=== PATIENT | male | born 1970 | race Caucasian/White ===

== ENCOUNTER 2020-10-18 16:04 | Outpatient (REF) | payer BC, SELFPAY ==
[2020-10-19 10:09] LABS: SARS COV2 IgG Negative (Negative)
== END 2020-10-18 16:05 | disposition home or self-care (01) ==
LOC: HO.MANLDS 16:04
PROVIDERS: PCP Internal Medicine; Visit Provider Internal Medicine
DX: Z01.84 Encounter for antibody response examination (principal)
CPT/HCPCS: 36415; 86769

== ENCOUNTER 2020-12-15 08:47 | Outpatient (REF) | payer BC, SELFPAY ==
[2020-12-15 11:12] LABS: MANUAL DIFF FLAG NO
[2020-12-15 11:43] LABS: Basophils Percent Auto 0.6 % (0-2); Eosinophils Absolute Auto 0.2 X10*3/uL (0.0-0.4); Eosinophils Percent Auto 3.5 % (0-4); Hematocrit 47.9 % (42-52); Imm Gran Abs Auto 0.02 X10*3/uL (0.00-0.03); Imm Gran Pct Auto 0.3 % (0.0-0.4); Lymphocytes Absolute Auto 1.5 X10*3/uL (1.2-4.9); Lymphocytes Percent Auto 23.2 % (20-40); Mean Corpuscular HGB Conc 33.4 g/dl (31.0-36.0); Mean Corpuscular Hemoglobin 31.3 pg (27.0-33.0); Mean Corpuscular Volume 93.7 fL (80-98); Mean Platelet Volume 10.3 fL (9.4-12.4); Monocytes Absolute Auto 0.4 X10*3/uL (0.1-1.2); Monocytes Percent Auto 6.6 % (2-11); Neutrophils Absolute Auto 4.2 X10*3/uL (2.0-8.3); Neutrophils Percent Auto 65.8 % (45-73); Platelet Count 241 X10*3/uL (160-400); Red Blood Count 5.11 X10*6/uL (4.60-5.80); Red Cell Distribution Width 12.6 % (11.0-16.0); White Blood Count 6.3 X10*3/uL (4.8-10.8)
[2020-12-15 12:00] LABS: Alanine Aminotransferase 16 U/L (0-40); Albumin Level 4.2 g/dL (3.5-5.0); Alkaline Phosphatase 67 U/L (39-117); Anion Gap 14 (12-20); Aspartate Amino Transferase 16 U/L (5-37); Bilirubin Total 0.5 mg/dL (0.0-1.0); Blood Urea Nitrogen 21 mg/dL (9-16); Carbon Dioxide 26 mmol/L (22-29); Chloride 104 mmol/L (96-108); Cholesterol 172 mg/dL; Estimated Glomerular Filt Rate > 60; Glucose Fasting 90 mg/dL (60-99); HDL Cholesterol 55 mg/dL; LDL Cholesterol Calculated 109 mg/dl; Sodium 139 mmol/L (135-145); Total Protein 7.1 g/dL (6.5-8.0); Triglycerides 40 mg/dL
[2020-12-15 12:20] LABS: Prostate Specific Antigen 0.99 ng/mL (<0.05-4.0)
[2020-12-15 13:09] LABS: Glucose Urine UA NEG (NEG); Leukocyte Esterase Urine NEG (NEG); Nitrite Urine NEG (NEG); PH 5.5 (5.0-8.0); Specific Gravity - Urine >= 1.030 (1.005-1.025); Urine Blood NEG (NEG); Urine Ketones NEG (NEG); Urine Protein NEG (NEG-TRACE)
[2020-12-15 13:10] LABS: Appearance Urine CLEAR; Color Urine YELLOW
== END 2020-12-15 08:48 | disposition home or self-care (01) ==
LOC: HO.MANLDS 08:47
PROVIDERS: PCP Internal Medicine; Visit Provider Internal Medicine
DX: Z00.01 Encounter for general adult medical examination with abnormal findings (principal); Z12.5 Encounter for screening for malignant neoplasm of prostate
CPT/HCPCS: 36415; 80053; 80061; 81003; 84153; 85025

== ENCOUNTER 2022-08-09 11:44 | Outpatient (REF) | payer BC, SELFPAY ==
[2022-08-09 13:49] LABS: MANUAL DIFF FLAG NO
[2022-08-09 14:02] LABS: Basophils Absolute Auto 0.1 X10*3/uL (0.0-0.2); Basophils Percent Auto 0.7 % (0-2); Eosinophils Absolute Auto 0.3 X10*3/uL (0.0-0.4); Eosinophils Percent Auto 4.7 % (0-4); Hematocrit 48.2 % (42.0-52.0); Imm Gran Abs Auto 0.03 X10*3/uL (0.00-0.03); Imm Gran Pct Auto 0.4 % (0.0-0.4); Lymphocytes Absolute Auto 1.6 X10*3/uL (1.2-4.9); Lymphocytes Percent Auto 22.8 % (20-40); Mean Corpuscular HGB Conc 33.2 g/dl (31.0-36.0); Mean Corpuscular Hemoglobin 30.5 pg (27.0-33.0); Mean Corpuscular Volume 91.8 fL (80.0-98.0); Mean Platelet Volume 9.9 fL (9.4-12.4); Monocytes Absolute Auto 0.4 X10*3/uL (0.1-1.2); Monocytes Percent Auto 5.7 % (2-11); Neutrophils Absolute Auto 4.5 x10*3/uL (2.0-8.3); Neutrophils Percent Auto 65.7 % (45-73); Platelet Count 266 X10*3/uL (160-400); Red Blood Count 5.25 X10*6/uL (4.60-5.80); Red Cell Distribution Width 12.6 % (11.0-16.0); White Blood Count 6.8 X10*3/uL (4.8-10.8)
[2022-08-09 14:46] LABS: Alanine Aminotransferase 12 U/L (0-40); Albumin Level 4.2 g/dL (3.5-5.0); Alkaline Phosphatase 64 U/L (39-117); Anion Gap 14 (12-20); Aspartate Amino Transferase 18 U/L (5-37); Bilirubin Total 0.7 mg/dL (0.0-1.0); Blood Urea Nitrogen 19 mg/dL (9-16); Calcium 9.3 mg/dL (8.4-10.2); Carbon Dioxide 26 mmol/L (22-29); Chloride 104 mmol/L (96-108); Cholesterol 168 mg/dL; Estimated Glomerular Filt Rate > 60; Glucose Random 88 mg/dL (60-115); HDL Cholesterol 51 mg/dL; LDL Cholesterol Calculated 109 mg/dl; Potassium 4.7 mmol/L (3.3-5.1); Sodium 139 mmol/L (135-145); Triglycerides 41 mg/dL
[2022-08-09 15:09] LABS: Prostate Specific Antigen 0.96 ng/mL (<0.05-4.0); Thyroid Stimulating Hormone 1.17 uIU/mL (0.32-4.0); Vitamin D 25-OH Total 23.7 ng/mL (>30)
== END 2022-08-09 11:45 | disposition home or self-care (01) ==
LOC: HO.MANLDS 11:44
PROVIDERS: Visit Provider Internal Medicine
DX: Z00.00 Encounter for general adult medical examination without abnormal findings (principal); Z12.5 Encounter for screening for malignant neoplasm of prostate
CPT/HCPCS: 36415; 80053; 80061; 82306; 84153; 84443; 85025

== ENCOUNTER 2023-09-12 11:51 | Outpatient (REF) | payer BC, SELFPAY ==
[2023-09-12 14:41] LABS: Estimated Average Glucose 108 mg/dL; Hemoglobin A1c % 5.4 % (<6.0)
[2023-09-12 14:54] LABS: Alanine Aminotransferase 16 U/L (0-40); Alkaline Phosphatase 76 U/L (39-117); Anion Gap 13 (12-20); Aspartate Amino Transferase 19 U/L (5-37); Bilirubin Total 0.6 mg/dL (0.0-1.0); Blood Urea Nitrogen 20 mg/dL (9-16); Calcium 9.2 mg/dL (8.4-10.2); Carbon Dioxide 27 mmol/L (22-29); Chloride 107 mmol/L (96-108); Estimated Glomerular Filt Rate > 60; Glucose Random 104 mg/dL (60-115); Potassium 4.6 mmol/L (3.3-5.1); Sodium 142 mmol/L (135-145); Total Protein 7.4 g/dL (6.5-8.0)
== END 2023-09-12 11:52 | disposition home or self-care (01) ==
LOC: HO.MANLDS 11:51
PROVIDERS: Visit Provider Internal Medicine
DX: Z13.1 Encounter for screening for diabetes mellitus (principal); Z83.3 Family history of diabetes mellitus
CPT/HCPCS: 36415; 80053; 83036

== ENCOUNTER 2024-08-17 10:39 | Outpatient (REF) | payer BC, SELFPAY ==
[2024-08-17 13:28] LABS: MANUAL DIFF FLAG NO
[2024-08-17 13:41] LABS: Basophils Absolute Auto 0.1 X10*3/uL (0.0-0.2); Basophils Percent Auto 0.8 % (0-2); Eosinophils Absolute Auto 0.3 X10*3/uL (0.0-0.4); Eosinophils Percent Auto 4.6 % (0-4); Hematocrit 46.7 % (42.0-52.0); Hemoglobin 15.6 g/dl (14.0-18.0); Imm Gran Abs Auto 0.05 X10*3/uL (0.00-0.03); Imm Gran Pct Auto 0.8 % (0.0-0.4); Lymphocytes Absolute Auto 1.7 X10*3/uL (1.2-4.9); Lymphocytes Percent Auto 26.3 % (20-40); Mean Corpuscular HGB Conc 33.4 g/dl (31.0-36.0); Mean Corpuscular Hemoglobin 31.4 pg (27.0-33.0); Mean Platelet Volume 10.8 fL (9.4-12.4); Monocytes Absolute Auto 0.4 X10*3/uL (0.1-1.2); Monocytes Percent Auto 5.7 % (2-11); Neutrophils Percent Auto 61.8 % (45-73); Platelet Count 221 X10*3/uL (160-400); Red Blood Count 4.97 X10*6/uL (4.60-5.80); Red Cell Distribution Width 13.2 % (11.0-16.0); White Blood Count 6.5 X10*3/uL (4.8-10.8)
[2024-08-17 13:58] LABS: Estimated Average Glucose 103 mg/dL; Hemoglobin A1C 127.4219 umol/L; Hemoglobin A1c % 5.2 % (<6.0); Total Hemoglobin (HGBA1C) 3845.4248 umol/L
[2024-08-17 14:03] LABS: Alanine Aminotransferase 18 U/L (0-40); Albumin Level 4.1 g/dL (3.5-5.0); Alkaline Phosphatase 72 U/L (39-117); Anion Gap 12 (12-20); Aspartate Amino Transferase 26 U/L (5-37); Bilirubin Total 0.7 mg/dL (0.0-1.0); Blood Urea Nitrogen 16 mg/dL (9-16); Calcium 9.5 mg/dL (8.4-10.2); Carbon Dioxide 26 mmol/L (22-29); Chloride 105 mmol/L (96-108); Cholesterol 162 mg/dL (<200); Estimated Glomerular Filt Rate > 60; Glucose Random 91 mg/dL (60-115); HDL Cholesterol 57 mg/dL (>40); LDL Cholesterol Calculated 95 mg/dL (<100); Potassium 4.5 mmol/L (3.3-5.1); Sodium 138 mmol/L (135-145); Total Protein 7.1 g/dL (6.5-8.0); Triglycerides 52 mg/dL (<150)
[2024-08-17 14:22] LABS: Thyroid Stimulating Hormone 1.04 uIU/mL (0.32-4.0)
[2024-08-22 12:24] LABS: VITAMIN D (1,25 OH) D3 41 pg/mL; Vit D (1,25-Dihydroxy) Total 41 pg/mL (18-72); Vitamin D (1,25 OH) D2 <8 pg/mL
== END 2024-08-17 10:40 | disposition home or self-care (01) ==
LOC: HO.MANLDS 10:39
PROVIDERS: Visit Provider Internal Medicine
DX: Z00.01 Encounter for general adult medical examination with abnormal findings (principal); Z12.5 Encounter for screening for malignant neoplasm of prostate; Z13.1 Encounter for screening for diabetes mellitus; Z13.89 Encounter for screening for other disorder
CPT/HCPCS: 36415; 80053; 80061; 82652; 83036; 84153; 84443; 85025

== ENCOUNTER 2025-09-13 10:39 | Outpatient (REF) | payer BC, SELFPAY ==
--- OUTSIDE RECORDS SUMMARY | 2025-09-13 12:24 | XMS_ITS | Encounter Summary ---
Author Organization [facility] Address [address] [place] [id number] Phone Care Team Providers Care Geoscientist Name Role Phone Armando Rojas DO Primary Care Provider [phone] Armando Rojas DO Unavailable Encounter Details Date Type Department Care Team (Latest Contact Info) Description 08/17/2021 Transcribe Orders [facility] Phleb [facility] [address] [facility] 2nd [place] [address] Azalia Fox, POWER WASHER [address] [place] [address] [email or web address] Gastroesophageal reflux disease, unspecified whether esophagitis present (Primary Dx) Social History Tobacco Use Types Packs/Day Years Used Date Smoking Tobacco: Never Smokeless Tobacco: Never Alcohol Use Standard Drinks/Week Comments No 0 (1 standard drink = 0.6 oz pur e alcohol) Sex and Gender Information Value Date Recorded Sex Assigned at Not on file Legal Sex Male 7:25 PM EST Gender Identity Not on file Sexual Orientation Not on file documented as of this encounter Plan of Treatment Not on file documented as of this encounter Results * (ABNORMAL) C-Reactive Protein (08/17/2021 8:44 AM EDT) C REACTIVE PROTEIN 5.5(H) 0.0 - 4.0 mg/L [facility] Blood 08/17/2021 8:44 AM EDT 08/17/2021 8:50 AM EDT us Azalia Fox POWER WASHER LAB BLOOD BKR ORDERABLES F inal Result [address] [address] * (ABNORMAL) Comprehensive metabolic panel (08/17/2021 8:44 AM EDT) SODIUM 139 133 - 146 mmol/L [facility] POTASSIUM 4.8 3.3 - 5.1 mmol/L [facility] CHLORIDE 102 96 - 108 mmol/L [facility] CO2 28 21 - 35 mmol/L [facility] BUN 20(H) 6 - 19 mg/dL [facility] CREATININE 0.80 0.5 - 1.5 mg/dL [facility] GLUCOSE 93 70 - 99 mg/dL [facility] ALBUMIN 4.3 3.9 - 4.8 g/dL [facility] TOTAL PROTEIN 7.1 6.5 - 8.0 g/dL [facility] CALCIUM 9.1 8.4 - 10.3 mg/dL [facility] ALKALINE PHOSPHATASE 72 39 - 117 U/L [facility] TOTAL BILIRUBIN 0.6 0.0 - 1.2 mg/dL [facility] AST 24 0 - 37 U/L [facility] ALT 11 0 - 40 U/L [facility] GLOBULIN 2.8 1 - 4.8 g/dL [facility] EGFR 103 >59 mL/min/1.7 3m2 [facility] Comment:Estimated glomerular filtration rate calculated using the CKD-EPI equation. ANION GAP 14 10 - 20 mmol/L [facility] Blood 08/17/2021 8:44 AM EDT 08/17/2021 8:50 AM EDT Azalia Fox [facility] LAB BLOOD BKR ORDERABLES F inal Result [address] [address] * CBC and differential (08/17/2021 8:44 AM EDT) WBC 6.76 4.00 - 11.00 K/uL [facility] RBC 5.18 4.23 - 5.82 M/uL [facility] HGB 16.2 13.4 - 17.5 g/dL [facility] HCT 48.1 37.0 - 51.0 % [facility] PLT 229 140 - 430 K/uL [facility] MCV 92.9 78.0 - 97.0 fL [facility] MCH 31.3 25.0 - 33.0 pg [facility] MCHC 33.7 32.0 - 36.0 g/dL [facility] RDW 12.6 11.0 - 15.0 % [facility] MPV 10.4 8.4 - 12.8 fl [facility] NRBC 0.00 0 /100 WBCs [facility] ABSOLUTE NRBC 0.00 0 K/uL [facility] DIFF METHOD Auto [facility] NEUTS 63.8 43.0 - 75.0 % [facility] LYMPHS 22.5 18.2 - 47.4 % [facility] MONOS 6.7 4.00 - 11.00 % [facility] EOS 5.6 0.0 - 8.0 % [facility] BASOS 0.7 0.0 - 2.0 % [facility] Granulocytes, immature (%) 0.7 0.0 - 0.9 % [facility] ABSOLUTE NEUTS 4.31 1.80 - 7.70 K/uL [facility] ABSOLUTE LYMPHS 1.52 1.00 - 3.10 K/uL [facility] ABSOLUTE MONOS 0.45 0.20 - 0.80 K/uL [facility] ABSOLUTE EOS 0.38 0.00 - 0.80 K/uL [facility] ABSOLUTE BASOS 0.05 0.00 - 0.09 K/uL [facility] Granulocytes, immature 0.05 0.00 - 0.05 K/uL [facility] Blood 08/17/2021 8:44 AM EDT 08/17/2021 8:50 AM EDT us Azalia Fox POWER WASHER LAB BLOOD BKR ORDERABLES F inal Result Performing Organization Address [facility] [address]/ZIP Co de Phone Number [address] [address] * Immunoglobulin A (08/17/2021 8:44 AM EDT) IgA 332 70 - 400 mg/dL [facility] Blood 08/17/2021 8:44 AM EDT 08/17/2021 8:50 AM EDT Azalia Mayer Rdudy [facility] LAB BLOOD BKR ORDERABLES F inal Result Performing Organization Address [facility] [address]/[facility] Co de Phone Number [address] [address] * Tissue transglutaminase IgA (08/17/2021 8:44 AM EDT) TTG IGA ANTIBODY <1.2 <4.0 (Negative) U/mL [facility] Blood 08/17/2021 8:44 AM EDT 08/17/2021 8:50 AM EDT Azaliabriana Mayer Ruddy [facility] LAB BLOOD BKR ORDERABLES F inal Result Performing Organization Address [facility] [address]/[facility] Co de Phone Number [facility] [address] [place] [address] documented in this encounter Visit Diagnoses Diagnosis Gastroesophageal reflux disease, unspecified whether esophagitis present- Primary documented in this encounter Care Teams Geoscientist Relationship Specialty Start Date End Date Armando Rojas DO PCP - General 02/16/15 Armando Rojas DO [address] [place] [id number] Insurance Assigned Provider 01/17/24 documented as of this encounter Additional Source Comments The information contained in this document represents components of the legal health record. It is not the complete legal health record.[facility]
--- OUTSIDE RECORDS SUMMARY | 2025-09-13 12:24 | XMS_ITS | Encounter Summary ---
Author Organization [facility] Address [address] [place] [id number] Phone Care Team Providers Care Dry Wall Sprayer Name Role Phone Armando Rojas DO Primary Care Provider [phone] Armando Rojas DO Unavailable Encounter Details Date Type Department Care Team (Late st Contact Info) Description 04/07/2023 Procedure Pass Non-Invasive Cardiology [address] [place] [address] Social History Tobacco Use Types Packs/Day Years Used Date Smoking Tobacco: Never Smokeless Tobacco: Never Alcohol Use Standard Drinks/Week Comments No 0 (1 standard drink = 0.6 oz pur e alcohol) Education Answer Date Recorded Are you interested in more education? Not on ty e 02/06/2023 Are you concerned about learning? Not on file 02/06/2023 No 02/06/2023 No 02/06/2023 Digital Access Answer Date Recorded No 03/10/2023 No 03/10/2023 Reliable internet access at home? Not on file 03/10/2023 Device with a working camera? Not on file Sex and Gender Information Value Date Recorded Sex Assigned at Not on file Legal Sex Male 7:25 PM EST Gender Identity Not on file Sexual Orientation Not on file documented as of this encounter Plan of Treatment Not on file documented as of this encounter Visit Diagnoses Not on filedocumented in this encounter Care Teams Dry Wall Sprayer Relationship Specialty Start Date End Date Armando Rojas DO [email or web address] PCP - General 02/16/15 Armando Rojas DO [address] [place] [address] [email or web address] Insurance Assigned Provider 01/17/24 documented as of this encounter Additional Source Comments The information contained in this document represents components of the legal health record. It is not the complete legal health record.[facility]
--- OUTSIDE RECORDS SUMMARY | 2025-09-13 12:24 | XMS_ITS | Clinical Summary ---
Author Organization [facility] Address [address] [place] [phone] Phone Care Team Providers Care Circuit Court Judge Name Role Phone Armando Rojas DO Primary Care Provider [phone] Armando Rojas DO Unavailable Allergies Active Allergy Reactions Criticality Noted Date Comments Diltiazem Headaches 10/31/2023 Omeprazole Magnesium Rash Low 10/31/2023 Medications ibuprofen (ADVIL,MOTRIN) 800 MG tablet TAKE 1 TABLET BY MOUTH FOUR TIMES A DAY IF NEEDED WITH FOOD 0 10/30/2017 Active cetirizine (ZYRTEC) 10 MG tablet Take 10 mg by mouth as needed. seasonal Active coenzyme Q10 100 mg capsule Take 100 mg by mouth daily. Active cholecalciferol (VITAMIN D3) 4,000 unit tablet Take by mouth daily. Active lycopene/lutein /fruit extracts (FRUIT AND VEGETABLE DAILY ORAL) Take by mouth. Active green tea leaf extract (GREEN TEA) Cap Take by mouth. Active magnesium aspart,citrate, oxide 400 mg magnesium Cap Take 1 tablet by mouth daily. 10/03/2023 Active propranoloL (INDERAL LA) 60 mg 24 hr capsule Take 1 capsule (60 mg total) by mouth daily. 30 capsule 11 10/25/2024 Active terbinafine HCL (LAMISIL) 250 mg tablet Take 250 mg by mouth daily. 11/22/2024 Active Active Problems Problem Noted Date Diagnosed Date Other chest pain 02/24/2020 Right shoulder pain 10/30/2017 Gastroesophageal reflux disease 07/27/2012 Overview (12/03/2014): Gastroesophageal reflux disease SVT (supraventricular tachycardia) Immunizations Immunization Administration Dates Next Due COVID-19 (Pre-08/04) Moderna Vaccine, mRNA, PF 0 11/23/2020 Pneumococcal polysaccharide PPSV23 06/17/2012(De ferred: Other) Td, unspecified formulation 05/05/2008 Tdap 07/10/2019 Family History Medical History Relation Comments No Known Problems Brother Diabetes Father No Known Problems Maternal Aunt No Known Problems Maternal Grandfather No Known Problems Maternal Grandmother No Known Problems Maternal Uncle Breast cancer Mother Cancer Mother No Known Problems Paternal Aunt No Known Problems Paternal Grandfather No Known Problems Paternal Grandmother No Known Problems Paternal Uncle No Known Problems Sister No Known Problems Unspecified Clotting disorder Neg Hx Collagen disease Neg Hx Depression Neg Hx Dislocations Neg Hx Gout Neg Hx Infl. arthritis Neg Hx Osteoporosis Neg Hx Scoliosis Neg Hx Sleep disorder Neg Hx Relation Status Comments Brother Father Maternal Aunt Maternal Grandfather Maternal Grandmother Maternal Uncle Mother Paternal Aunt Paternal Grandfather Paternal Grandmother Paternal Uncle Sister Unspecified Social History Tobacco Use Types Packs/Day Years Used Date Smoking Tobacco: Never Smokeless Tobacco: Never Tobacco Cessation:Counseling Given: Not Answered Alcohol Use Standard Drinks/Week Comments No 0 [...] on file Sexual Orientation Not on file Last Filed Vital Signs Vital Sign Reading Time Taken Comments Blood Pressure 126/76 04/19/2025 2:42 PM EDT Pulse 78 04/19/2025 2:42 PM EDT Temperature 36.5 C (97.7 F) 04/19/2025 2:42 PM EDT Respiratory Rate 18 03/15/2013 9:01 AM EDT Oxygen Saturation 98% 04/19/2025 2:42 PM EDT Inhaled Oxygen Concentration - - Weight 101.2 kg (223 lb) 04/19/2025 2:42 PM EDT Height 166.4 cm (5' 5.51 ) 10/25/2024 1:40 PM ES T Body Mass Index 36.53 10/25/2024 1:40 PM EST Plan of Treatment Health Maintenance Due Date Last Done Comments DEPRESSION SCREENING 1982 HIV ONE-TIME SCREENING (18-6 5 YEARS) 01/06/1988 COLOGUARD 2015 FIT TEST 2015 FOBT 2015 SIGMOIDOSCOPY 2015 VIRTUAL COLONOSCOPY 2015 PNEUMOCOCCAL VACCINES (50+ years) (1 of 1 - PCV) 01/06/2020 ZOSTER VACCINES (1 of 2) 01/06/2020 SCREENING FOR DIABETES 08/17/2024 , 12/10/2019 INFLUENZA VACCINE (#1) 2025 08/08/2015 COVID-19 VACCINE (2 - 2024-2 6 season) 2025 11/23/2020 LIPID PANEL 08/09/2027 08/09/2022, 08/09/2022, 12/15/2020 COLONOSCOPY 07/23/2028 08/17/2021 COLORECTAL CANCER SCREENING 07/23/2028 Adult Td,Tdap Booster 07/10/2029 07/10/2019 , 05/05/2008 RSV VACCINE (1 - 1-dose 75+ series) 2045 HEPATITIS C SCREENING Completed 12/10/2019 , 03/29/1996 SMOKING STATUS SCREENING (On ce After 26 Yrs) Completed 04/19/2025 HEPATITIS A VACCINES Aged Out No long er eligible based on patient's age to complete this topic HIB VACCINES Aged Out No longer eligi ble based on patient's age to complete this topic IPV VACCINES Aged Out No longer eligi ble based on patient's age to complete this topic MENINGOCOCCAL VACCINES (ACWY) Aged Out No longer eligible based on patient's age to complete this topic MENINGOCOCCAL VACCINES (B) Aged Out N o longer eligible based on patient's age to complete this topic Medical Devices Not on file Procedures Procedure Name Priority Date/Time Associated Diagnosis Comments HM COLONOSCOPY FOR RESULT ENTRY ONLY Routine 08/17/2021 from Last 3 Months or Most Recently Relevant to Health Maintenance Results * COLONOSCOPY FOR RESULT ENTRY ONLY (08/17/2021) HM Colonoscopy External us Historical Provider MD HEALTH MAINTENANCE Final Result from Last 3 Months or Most Recently Relevant to Health Maintenance Insurance [facility] [employer] Care Teams Circuit Court Judge Relationship Specialty Start Date End Date Armando Rjoas DO PCP - General 02/16/15 Armando Rojas DO [address] [place] [address] Insurance Assigned Provider 01/17/24 Additional Source Comments The information contained in this document represents components of the legal health record. It is not the complete legal health record.[facility]
--- OUTSIDE RECORDS SUMMARY | 2025-09-13 12:24 | XMS_ITS | Continuity of Care Document ---
Author Organization [facility], [facility] Address [address] [facility] [address] [facility] [place] [address] Assessment Encounter Date Assessment Date Assessment LastModified by Organization Details LastModified Time 09/13/2025 09/13/2025 Patient presente d to office today for their Medicare Annual Wellness Visit. Education was provided on healthy nutrition, including a diet rich in fruits and vegetables, minimizing simple carbohydrates, salt, and saturated fats. Encouraged regular cardiovascular exercise such as walking at least 30 minutes daily, 5 times per week. Emphasized preventive health measures and educated pt on fall prevention and community-based lifestyle interventions to help reduce health risks and promote healthy living. Not available 07/08/2025 16:46:49 Plan of Treatment Reminders Order Date Submit Date Provider Last Modified By Organization Details Last Modified Time Details Appointments MEDICARE ANNUAL WELLNESS 2024 10:00A M DR KOTHARI Not available Not available Not available Lab lipid panel, blood 2024 025 [facility], [address] [place] [address], [id number], 09/13/2025 10:35:24 CBC w/ auto diff 2024 025 [facility], [address] [place] [address], [id number], 09/13/2025 10:35:23 CMP, serum or plasma 2024 025 [facility], [address] [place] [address], [id number], 09/13/2025 10:35:23 testoster one, total, serum 2024 [facility], [address] [place] [address], [id number], 09/13/2025 10:35:24 vitamin B12 + folate, serum or blood 2024 [facility], [address] [place] [address], [id number], 09/13/2025 10:35:24 vitamin D, 25-hydrox y, total, serum 2024 [facility], [address] [place] [address], [id number], 09/13/2025 10:35:23 Referral gastroent erologist referral 2024 [email or web address] Cristi Juarez MD, [address] [place] [address], [id number], 09/13/2025 10:39:08 Procedures None recorded. Surgeries None recorded. Imaging None recorded. Medication Orders None recorded. Patient TargetsNo targets recorded. Patient Instructions Encounter Date Encounter Id Patient Instructions Last Modified By Organization Details Last Modified Time 09/13/2025 [id number] advance care planning: care instructions Not available 09/13/2025 10:29:41 Discussed and explained advance directives such as standard forms to the . Face to face discussion lasted for a duration of ___ minutes. Not available 07/08/2025 16:46:49 Reason for Referral Professor Of Historical Theology Referral for Screening for malignant neoplasm of colon screening colonoscopy Referring Physician: Armando Kothari, Internal Medicine, Encounter Date: 09/13/2025 Problems Name Problem SNOMED Code Status Onset Date Resolution Date Notes Provider Name and Address Organization Details Recorded Time Gastroesop hageal reflux disease 228398656 Active 2017 [facility] 10:09:51 Family history of diabetes mellitus 764830476 Active 2017 [facility] 10:[facility] Family history of malignant neoplasm of thyroid 014692754 Active 2017 [facility] 10:09:51 Low back pain 755510452 Active 2017 [facility] 10:09:51 Obesity 182318113 Active 2017 [facility] 4 10:09:51 Mixed sleep apnea 460007158 Active 2017 [facility] 4 10:09:51 Supraventr icular tachycardi a 1707651 Active 2017 Lucy Dutch [facility] 4 10:09:51 Onychomyco sis of toenails 725819257 Active 2018 Armando Kothari, [address], [place], [address] 9 11:05:53 Sleep apnea 74058284 Active 2021 Lucyallie Judd [facility] 4 10:09:51 COVID-19 680642789 Active 2021 Lucyallie Judd [facility] 4 10:09:56 Herpes zoster 3728359 Active 2023 [facility] 14:57:17 Bilateral hearing loss 33231593 Active 2023 [facility] 14:57:14 Weakness of left lower limb Active 2024 [facility] 5 14:57:14 Lumbar spine instabilit y 796759117 Active 2024 [facility] 5 14:57:14 Compressio n of lumbar nerve root 925524607 Active 2024 Armando Kothari, DO [address] [place] [address], [phone], [facility] 5 16:38:19 Pain in pelvis 14498133 Active 2024 Armando Kothari, DO [address] [place] [address], [phone], [facility] 5 16:41:54 Left inguinal hernia 571050179 Active 2024 Armando Kothari, DO [address] [place] [address], [phone], [facility] 5 21:28:53 Fatigue 93337429 Active 2024 Armando Kothari, DO [address] [place] [address], [phone], [facility] 5 10:23:44 Problem Notes None recorded. Procedures Surgical History Date Name Laterality Status Provider Name and Address Organization Details Recorded Time 8 Colonoscopy completed Lisset Solomon [facility] 01/14/2020 13:59:44 Imaging Results None recorded. Procedure Notes None recorded. Medical Equipment None Reported. Allergies Allergen ID Allergen Name Allergen Category Reaction Reaction Severity Criticality Documentation Date Start Date Code Code System Note Provider Name and Address Organization Details Recorded Time 05491 diltiazem Not available headache Not available Not available 09/13/20252023 3443 RxNorm Not Available [employer] - [employer] - prod 5 03:46:43 23407 omeprazol e magnesium medicatio n rash Not available low 09/13/20252023 95706 6 RxNorm Not Available [employer] External Data Service - prod 5 03:46:43 2071 Prilosec medicatio n Not available Not available Not available 05/18/2018 28619 5 RxNorm tachy cardi [facility] 8 08:17:15 3565 diltiazem medicatio n headache Not available Not available 08/13/2019 3443 RxNorm Armando Brandon Bob, DO [address] [place], [address], [facility] 9 10:46:27 Medications Name Sig Start Date Stop Date Status Note LastModified by Organization Details LastModified Time amoxicillin 500 mg capsule TAKE 1 CAPSULE BY MOUTH THREE TIMES DAILY UNTIL GONE 08/17 completed Not Available Not Available Not Available Colace 100 mg capsule Take 1 capsule every day by oral route. 08/17 completed Not Available Not Available Not Available prednisone 10 mg tablet 40 mg x 2 days30 mg x 2 days20 mg x 2 days 10 mg x 2 days 08/17 completed Not Available Not Available Not Available CoQ10 10 mg capsule Take 1 capsule every day by oral route. active Not Available Not Available No t Available ibuprofen 800 mg tablet 11/24 completed Not Available Not Available Not Available metoprolol succinate ER 50 mg tablet,exte nded release 24 hr TK 1 T PO QD 12/13 completed Not Available Not Available Not Available valacyclovi r 1 gram tablet TAKE 1 TABLET BY MOUTH EVERY 8 HOURS FOR 7 DAYS DIRECTED 08/17 completed Not Available Not Available Not Available diltiazem CD 240 mg capsule,ext ended release 24 hr 12/13 completed Not Available Not Available Not Available famotidine 40 mg tablet TAKE 1 TABLET BY MOUTH TWICE DAILY 11/22 completed Not Available Not Available Not Available propranolol ER 60 mg capsule,24 hr,extended release active Not Available Not Available Not Available aspirin 81 mg tablet,jose armando yed release Take 1 tablet every day by oral route. 08/17 completed Not Available Not Available Not Available butalbital- acetaminoph en-caffeine 50 mg-325 mg-40 mg tablet TAKE 1 TABLET BY MOUTH EVERY 4 HOURS FOR 7 DAYS NEEDED 08/17 completed Not Available Not Available Not Available amoxicillin 500 mg tablet 05/18 completed Not Available Not Available Not Available acetaminoph en ER 650 mg tablet,exte nded release TAKE 1 TABLET BY MOUTH EVERY 8 HOURS FOR UP TO 30 DOSES NEEDED FOR PAIN 08/17 completed Not Available Not Available Not Available terbinafine HCl 250 mg tablet TAKE 1 TABLET BY MOUTH EVERY DAY active Not Available Not Available No t Available Cartia XT 120 mg capsule,ext ended release Take 1 capsule every day by oral route for 30 days. 08/13 completed Not Available Not Available Not Available zolpidem 5 mg tablet TAKE 1 TABLET BY MOUTH EVERY DAY FOR 20 DAYS 08/09 completed Not Available Not Available Not Available metoprolol succinate ER 25 mg tablet,exte nded release 24 hr Take1 tablet by mouth once a day 12/13 completed Not Available Not Available Not Available ibuprofen 600 mg tablet TAKE 1 TABLET BY MOUTH THREE TIMES DAILY WITH MEALS FOR 10 DAYS 08/17 completed Not Available Not Available Not Available naproxen 500 mg tablet 11/24 completed Not Available Not Available Not Available amoxicillin 875 mg-potassiu m clavulanate 125 mg tablet TAKE 1 TABLET BY MOUTH EVERY 12 HOURS WITH MEALS FOR 10 DAYS 08/17 completed Not Available Not Available Not Available oxycodone 5 mg tablet TAKE 1 TABLET BY MOUTH EVERY 4 HOURS NEEDED FOR PAIN 08/17 completed Not Available Not Available Not Available Boostrix Tdap 2.5 Lf unit-8 mcg-5 Lf/0.5 mL intramuscul ar syringe 08/13 completed Not Available Not Available Not Available GaviLyte-G 236 gram-22.74 gram-6.74 gram-5.86 gram oral solution 11/24 completed Not Available Not Available Not Available Paxlovid 300 mg (150 mg x 2)-100 mg tablets in a dose pack TAKE 2 TABLETS BY MOUTH OF NIRMATREL VIR AND 1 TABLET OF RIONAVIR TOGETHER BY MOUTH TWICE DAILY 08/09 completed Not Available Not Available Not Available Vitals Date Recorded Body height Body mass index (BMI) Body weight Oxygen saturation Heart rate Systolic And Diastolic Provider Name and Address Organization Details Last Updated DateTime 5 165.1 cm 37.4 kg/m2 487774. 28 g 95 % 71 /min 116/78 mm[Hg] [facility] 5 10:01:07 Social History Question Answer Notes LastModified by Organizat ion Details LastModified Time Tobacco Smoking Status Never Smoker Not Available [employer] 08/15/2020 03:36:23 What Is Your Level Of Caffeine Consumption? None [id number] Information not available 08/15/2020 What Was The Date Of Your Most Recent Tobacco Screening? 09/13/2025 Information not available 09/13/2025 Sex: Unknown Functional Status Question Answer Note LastModified by Organizat ion Details LastModified Time Do you or have you ever used any other forms of tobacco or nicotine? No Information not available 08/09/2022 What is your level of alcohol consumption? None [id number] Information not available 08/15/2020 What is your exercise level? Moderate WALKING [id number] Information not available 08/15/2020 Mental Status None recorded. Family History Nothing Reported. Medical History No medical history recorded. Immunizations Vaccine Type Date Status Note Provider Nam e and Address Organization Details Recorded Time Tdap 08/19/2022 completed Armando Kothari DO [address] [place] [address], [phone], [facility] 08/17/2024 10:28:37 COVID-19, mRNA, LNP-S, PF, 100 mcg/0.5mL dose or 50 mcg/0.25mL dose 10/23/2020 completed Gilles Valadez [address] [place] [address], [phone], [facility] 12/13/2020 16:38:49 COVID-19, mRNA, LNP-S, PF, 100 mcg/0.5mL dose or 50 mcg/0.25mL dose 11/23/2020 completed Gilles Valadez [address] [place] [address], [address], [facility] 12/13/2020 16:39:00 Past Encounters Encounter ID Performer Location Encounter Start Date Encounter Closed Date Diagnosis/Indication Diagnosis SNOMED-CT Code Diagnosis ICD10 Code Diagnosis IMO Codes Diagnosis Note [id number] Armando Kothari DO [facility] [address] [place] [address],[place] [address] 09/13/2025 09:55:14 09/13/2025 10:32:52 Screening for cardiovascular system disease 676833300 Z13.6 utd Screening for malignant neoplasm of colon 905925031 Z12.11 Depression screening 171 223941 Z13.31 neg Preventive procedure 169 994236 Z00.00 14473139 discussed in detail needs to get labalso will have him get a eval and talk to his insur for glp-1 use Fatigue 13823268 R53.82 728127 Health Concerns Section Related Observation LastModified by Organization Vernatyler ls LastModified Time None Recorded Concern Status LastModified by Organization Details LastModified Time None Recorded Payers Encounter Date Sequence Insurance Name Policy Number Policy Mendoza Covered Member ID Mendoza Member ID Guarantor Name 09/13/2025 1 [facility] [id number] Archie Gonzales [id number] Archie Gonzales Notes Date Note Type Note Provider Name a nd Address Organization Details Recorded Time 5 text/html Medicare Annual Wellness VisitReported by PatientSocial/Behavio ral HistoryFor diet and nutrition, patient reportshealthy diet. For fracture risk, patient reportsno history of fractures,no recent explained fracture,no sudden unexplained fractures, andno previous musculoskeletal injuries. For physical activity, patient reportsexercises on a regular basis,recent increase in physical activity, andgood physical condition.Mental Status:For depression risk, patient reportsnever feels sad, empty, or tearful,no loss of interest in activities,no significant changes in weight,no sleep disturbances or insomnia,no agitation,no loss of energy,no feelings of worthlessness or guilt,no thoughts of suicide,no history of depression, andno history of mood disorders. For orientation, patient reportsno disorientation to time,no disorientation to date, andno disorientation to place. For concentration and memory, patient reportsno decreased concentrating ability,no memory lapses or loss, anddoes not forget words. For speech/motor difficulties, patient reportsno speech difficulties,no difficulty expressing formulated concepts,no difficulty with fine manipulative tasks,no difficulty writing/copying,no slowed reaction time, anddoes not knock things over when trying to pick them up.Functional AbilityFor hearing, patient reportsno loss of hearing. For vision, patient reportsno vision problems. For activities of daily living, patient reportsable to bathe with limited or no assistance,able to contol urination and bowels,able to dress with limited or no assistance,able to feed self with limited or no assistance,able to get out of chair or bed with limited or no assistance,able to groom with limited or no assistance, andable to toilet with limited or no assistance. For instrumental activities of daily living, patient reportsable to do house work with limited or no assistance,able to grocery shop with limited or no assistance,able to manage medications with limited or no assistance,able to manage money with limited or no assistance,able to prepare meals with limited or no assistance, andable to use the phone with limited or no assistance. For falls risk assessment, patient reportsno frequent falls while walking,no fall in the past year,no fall since last visit, andno dizziness/vertigo. For home safety, patient reportsno unsafe candy hazzards,no unsafe stairs,no unsafe gas appliances,working smoke/co detectors,wears protective head gear for biking/high velocity,use of seatbelts,practicing 'safer sex',no vision or hearing loss while driving,no fire arms,has hand bars in the bathroom/shower, andgood lighting in the home.ROS as noted in the HPI Armando Kothari DO [address] [facility], [place], [address], [facility] 09/13/2025 10:51:00
--- OUTSIDE RECORDS SUMMARY | 2025-09-13 12:24 | XMS_ITS | Encounter Summary ---
Author Organization [facility] Address [address] [address] Phone Care Team Providers Care Eligibility Supervisor Name Role Phone Ministeriorenea Armando Johanna Primary Care Provider [phone] MinisterioArmando meier Unavailable Encounter Details Date Type Department Care Team (Late st Contact Info) Description 12/03/2024 Ancillary Orders [facility], X-Ray - [facility] [address] [address] Armando Rojas DO [address] [facility] [address] [place], [place] [id number] [email or web address] Low back pain, unspecified back pain laterality, unspecified chronicity, unspecified whether sciatica present (Primary Dx) Social History Tobacco Use [...] documented as of this encounter Results * XR LUMBOSACRAL SPINE 2-3 VIEWS (12/03/2024 9:02 AM EST) Anatomical Region Laterality Modality L-spine Computed Radiogr aphy 12/03/2024 11:1 5 AM EST Impressions 12/03/2024 11:16 AM EST Grade 2 anterolisthesis of L5 on S1 secondary to chronic bilateral L5 pars defects with superimposed degenerative changes of the lumbar spine. Narrative 12/03/2024 11:16 AM EST XR LUMBOSACRAL SPINE 2-3 VIEWS Referring clinician's provided indication for this examination in Epic: Pain COMPARISON: None FINDINGS: Levocurvature of the lumbar spine centered at L3. Grade 2 anterolisthesis of L5 on S1 secondary to chronic bilateral L5 pars defects. Lumbar vertebral body heights are maintained. Moderate disc height loss at L5-S1. Multilevel facet arthropathy. Degenerative changes of the sacroiliac joints. Procedure Note Tha Ford MD - 12/03/2024 XR LUMBOSACRAL SPINE 2-3 VIEWS Referring clinician's provided indication for this examination in Epic:Pain COMPARISON: None FINDINGS: Levocurvature of the lumbar spine centered at L3. Grade 2 anterolisthesisof L5 on S1 secondary to chronic bilateral L5 pars defects. Lumbarvertebral body heights are maintained. Moderate disc height loss at L5-S1.Multilevel facet arthropathy. Degenerative changes of the sacroiliacjoints. IMPRESSION: Grade 2 anterolisthesis of L5 on S1 secondary to chronic bilateral L5 parsdefects with superimposed degenerative changes of the lumbar spine. us Armando A Bigda DO IMG XR SPINE Final Result documented in this encounter Visit Diagnoses Diagnosis Low back pain, unspecified back pain laterality, unspecified chronicity, unspecified whether sciatica present- Primary Low back pain, unspecified back pain laterality, unspecified chronicity, unspecified whether sciatica present documented in this encounter Care Teams Eligibility Supervisor Relationship Specialty Start Date End Date Armando Rojas DO [email or web address] PCP - General 02/16/15 Armando Rojas DO [address] [place] [address] Insurance Assigned Provider 01/17/24 documented as of this encounter Additional Source Comments The information contained in this document represents components of the legal health record. It is not the complete legal health record.[facility]
--- OUTSIDE RECORDS SUMMARY | 2025-09-13 12:24 | XMS_ITS | Encounter Summary ---
Author Organization [facility] Address [address] [place] [address] Phone Care Team Providers Care Dock Grader Name Role Phone Armando Rojas DO Primary Care Provider [phone] Armando Rojas DO Unavailable Encounter Details Date Type Department Care Team (Latest Contact Info) Description 07/20/2021 Transcribe Orders Virtual Department [address] [place] [address] Cristi Juarez MD [address] [place] [address] [email or web address] Encounter for laboratory testing for COVID-19 virus (Primary Dx) Social History Tobacco Use Types [...] documented as of this encounter Results * COVID-19 PCR Order (07/24/2021 12:30 PM EDT) COVID-19 Comment [id number] [facility] COVID Testing Status Sent to [facility] Other 07/24/2021 12:3 0 PM EDT 07/24/2021 6:06 PM EDT us Cristi Juarez MD LAB GENERAL ORDERABLES Final Result [facility] [address] [place] [address] documented in this encounter Visit Diagnoses Diagnosis Encounter for laboratory testing for COVID-19 virus- Primary documented in this encounter Care Teams Dock Grader Relationship Specialty Start Date End Date Armando Rojas DO PCP - General 02/16/15 Armando Rojas DO [address] [place] [address] [email or web address] Insurance Assigned Provider 01/17/24 documented as of this encounter Additional Source Comments The information contained in this document represents components of the legal health record. It is not the complete legal health record.[facility]
--- OUTSIDE RECORDS SUMMARY | 2025-09-13 12:24 | XMS_ITS | Encounter Summary ---
Author Organization [facility] Address [address] [facility] [address] [place] [address] Phone Care Team Providers Care Health Promotion Manager Name Role Phone Armando Rojas DO Primary Care Provider [phone] Armando Rojas DO Unavailable Reason for Referral * Consultation (Elective) - Closed Specialty Diagnoses / Procedures Referred By Sarah botello Referred To Contact Diagnoses Sleep apnea, unspecified type Armando Rojas DO Phone: tel: fax: [email or web address] [address] [address] Phone: tel: Referral ID Status Reason Start Date Expiration Date Visits Re quested Visits Authorized [id number] Closed 01/29/2022 01/29/2023 1 1 Encounter Details Date Type Department Care Team (Latest Contact Info) Description 01/29/2022 Transcribe Orders [facility] [address] [place] [address] [address], [address] [place] [address] Carlton Perez MD [address] [facility], [address] [place], [place] [id number] [email or web address] Sleep apnea, unspecified type (Primary Dx) Social History Tobacco Use Types [...] on file documented as of this encounter Procedures Procedure Name Priority Date/Time Associated Diagnosis Comments AMB REFERRAL TO [facility] SLEEP MEDICINE Routine 07/16/2022 10:42 AM EDT Sleep apnea, unspecified type documented in this encounter Results * Ambulatory referral to [facility] Sleep Medicine (07/16/2022 10:42 AM EDT) Other Armando [facility] REFERRALS Final Result documented in this encounter Visit Diagnoses Diagnosis Sleep apnea, unspecified type- Primary documented in this encounter Care Teams Health Promotion Manager Relationship Specialty Start Date End Date Armando Rojas DO PCP - General 02/16/15 Armando Rojas DO [address] [place] [address] Insurance Assigned Provider 01/17/24 documented as of this encounter Additional Source Comments The information contained in this document represents components of the legal health record. It is not the complete legal health record.[facility]
--- OUTSIDE RECORDS SUMMARY | 2025-09-13 12:24 | XMS_ITS | Encounter Summary ---
Author Organization [facility] Address [address] [facility] [address] [place] [address] Phone Care Team Providers Care Lead Blender Name Role Phone Armando Rojas DO Primary Care Provider [phone] Armando Rojas DO Unavailable Reason for Referral * MRI/CAT Scan - Closed Specialty Diagnoses / Procedures Referred By Sarah botello Referred To Contact Radiology Diagnoses Pelvic and perineal pain Procedures CT Abdomen/Pelvis Armando Rojas DO [address] [facility] [address] [place], [place] Phone: tel: fax: [email or web address] Referral ID Status Reason Start Date Expiration Date Visits Re quested Visits Authorized [id number] Closed 01/28/2025 01/28/2026 1 1 Encounter Details Date Type Department Care Team (Late st Contact Info) Description 01/28/2025 Transcribe Orders Virtual Department [address] [place] [address] Armando Rojas DO [address] [facility] [place] [address] [email or web address] Pelvic and perineal pain (Primary Dx) Social History Tobacco Use Types [...] documented as of this encounter Results * CT ABDOMEN/PELVIS WITH CONTRAST (02/08/2025 8:47 AM EDT) Anatomical Region Laterality Modality Abdomen, Pelvis Computed Tomogra phy 02/11/2025 8:49 AM EDT Impressions 02/11/2025 8:55 AM EDT 1. No acute process in the abdomen or pelvis. 2. Small fat-containing left inguinal hernia. Narrative 02/11/2025 8:[address] ABDOMEN/PELVIS WITH CONTRAST Referring clinician's provided indication for this examination in Epic: Outside Radiology Order; pelvic pain TECHNIQUE: Multidetector-row CT of the abdomen and pelvis was performed after administration of intravenous contrast using tailored dose modulation techniques. Images were reconstructed in the axial, coronal, and sagittal planes. COMPARISON: None FINDINGS: Lower Chest: No consolidation or pleural effusions. Liver: No focal lesions. Patent portal vein. Biliary: No biliary ductal dilatation. Spleen: No splenomegaly or focal lesions. Pancreas: No masses or ductal dilatation. Adrenal Glands: No nodules. Kidneys/Ureters: Multifocal left renal cortical scarring. No solid mass or hydronephrosis. Bowel: Brigette fundoplication. Small portion of the wrap is herniated above the diaphragm (6:49). No obstruction or bowel wall thickening. Normal appendix. Peritoneum/Retroperitoneum: No masses, pneumoperitoneum, or fluid. Lymph Nodes: No lymphadenopathy. Pelvic Organs/Bladder: No mass. Vessels: No abdominal aortic aneurysm. Bones/Soft Tissues: Mild spondylosis. Grade 1 anterolisthesis L5-S1. No aggressive osseous lesions. Small fat-containing left inguinal hernia. Procedure Note James Amaro MD - 02/11/2025 CT ABDOMEN/PELVIS WITH CONTRAST Referring clinician's provided indication for this examination in Epic:Outside Radiology Order; pelvic pain TECHNIQUE: Multidetector-row CT of the abdomen and pelvis was performedafter administration of intravenous contrast using tailored dosemodulation techniques. Images were reconstructed in the axial, coronal,and sagittal planes. COMPARISON: None FINDINGS: Lower Chest: No consolidation or pleural effusions. Liver: No focal lesions. Patent portal vein. Biliary: No biliary ductal dilatation. Spleen: No splenomegaly or focal lesions. Pancreas: No masses or ductal dilatation. Adrenal Glands: No nodules. Kidneys/Ureters: Multifocal left renal cortical scarring. No solid mass orhydronephrosis. Bowel: Brigette fundoplication. Small portion of the wrap is herniated abovethe diaphragm (6:49). No obstruction or bowel wall thickening. Normalappendix. Peritoneum/Retroperitoneum: No masses, pneumoperitoneum, or fluid. Lymph Nodes: No lymphadenopathy. Pelvic Organs/Bladder: No mass. Vessels: No abdominal aortic aneurysm. Bones/Soft Tissues: Mild spondylosis. Grade 1 anterolisthesis L5-S1. Noaggressive osseous lesions. Small fat-containing left inguinal hernia. IMPRESSION: 1. No acute process in the abdomen or pelvis. 2. Small fat-containing left inguinal hernia. Armando Rojas DO IMG CT ABD/PELVIS Final Result documented in this encounter Visit Diagnoses Diagnosis Pelvic and perineal pain- Primary Pelvic and perineal pain documented in this encounter Care Teams Lead Blender Relationship Specialty Start Date End Date Armando Rojas DO PCP - General 02/16/15 Armando Rojas DO [address] [place] [phone] [email or web address] Insurance Assigned Provider 01/17/24 documented as of this encounter Additional Source Comments The information contained in this document represents components of the legal health record. It is not the complete legal health record.[facility]
--- OUTSIDE RECORDS SUMMARY | 2025-09-13 12:24 | XMS_ITS | Encounter Summary ---
Author Organization [facility] Address [address] [address] Phone Care Team Providers Care Diversity Manager Name Role Phone Armando Rojas DO Primary Care Provider [phone] Armando Rojas DO Unavailable Encounter Details Date Type Department Care Team (Late st Contact Info) Description 07/09/2019 Ancillary Orders Virtual Department [address] [place] [address] Armando Rojas DO [address] [facility] [place] [address] Paroxysmal supraventricular tachycardia Social History Tobacco Use Types Packs/Day Years [...] documented as of this encounter Results * Holter Monitor 24 Hours (07/23/2019 3:27 PM EDT) Total Beats 116,114 [facility] Ventricular Ectopy Total Beats 7 [facility] Ventricular Ectopy Single Beats 5 [facility] Ventricular Pair 0 [facility] Ventricular Runs 0 [facility] Supraventricular Total Beats 23 [facility] Supraventricular Ectopic Single Beats 23 [facility] Supraventricular Runs 0 [facility] Mean Heart Rate 86 BPM [facility] Maximum Heart Rate 123 BPM [facility] Minimum Heart Rate 58 BPM [facility] Longest RR 1.094 S [facility] Anatomical Region Laterality Modality Heart Other 07/22/2019 8:31 AM EDT 07/23/2019 3:26 PM EDT Narrative 07/23/2019 4:43 PM EDT Holter monitor of good quality recorded for 24 hours. Baseline rhythm is sinus with an average heart rate of 86 and a range of 58 to a maximum of 123. There is a total of 7 isolated unifocal PVCs and a total of 23 isolated PACs. There are no supraventricular runs or high-grade ventricular dysrhythmia. Patient symptoms of palpitations correlate with isolated PVCs or PACs. Impression: Holter monitor done demonstrating sinus rhythm with rare supraventricular and ventricular ectopy as described. No high-grade dysrhythmias seen. Patient's palpitations correlate with isolated ectopy. Holter Monitor Main Form Mean HR: 86 bpm Max HR: 123 bpm Min HR: 58 bpm Ventricular ectopic beats - total: 7 Ventricular ectopic beats - singles: 5 Ventricular ectopic beats - pairs: 0 Ventricular ectopic beats - runs: 0 Supraventricular ectopic beats - total: 23 Supraventricular ectopic beats - singles: 23 Supraventricular ectopic beats - runs: 0 Longest R-R interval1.094 sec Armando Rojas DO [facility] [employer] ORDER[employer] F inal Result documented in this encounter Visit Diagnoses Diagnosis Paroxysmal supraventricular tachycardia Paroxysmal supraventricular tachycardia documented in this encounter Care Teams Diversity Manager Relationship Specialty Start Date End Date Armando Rojas DO [email or web address] PCP - General 02/16/15 Armando Rojas DO [address] [place] [address] Insurance Assigned Provider 4/6/24 documented as of this encounter Additional Source Comments The information contained in this document represents components of the legal health record. It is not the complete legal health record.[facility]
--- OUTSIDE RECORDS SUMMARY | 2025-09-13 12:24 | XMS_ITS | Encounter Summary ---
Author Organization [facility] Address [address] [place] [phone] Phone Care Team Providers Care Md Do Resident Urgent Care Name Role Phone Armando Rojas DO Primary Care Provider [phone] Armando Rojas DO Unavailable Encounter Details Date Type Department Care Team (Late st Contact Info) Description 01/28/2025 Procedure Pass [facility], Ct Scan - [address] [address] Social History Tobacco Use Types Packs/Day Years [...] on filedocumented in this encounter Care Teams Md Do Resident Urgent Care Relationship Specialty Start Date End Date Armando Rojas DO [email or web address] PCP - General 02/16/15 Armando Rojas DO [address] [place] [phone] [email or web address] Insurance Assigned Provider 01/17/24 documented as of this encounter Additional Source Comments The information contained in this document represents components of the legal health record. It is not the complete legal health record.[facility]
--- OUTSIDE RECORDS SUMMARY | 2025-09-13 12:24 | XMS_ITS | Data Portability ---
Author Organization [facility], Telehealth Patient Home Address [address] [place] [address] Assessment Encounter Date Assessment Date Assessment LastModified by Organization Details LastModified Time 06/18/2024 06/18/2024 Patient agreed and verbally consents to this audio and video Telehealth appt via a secure platform [email or web address] Not available 06/18/2024 14:22:56 11/22/2024 11/22/2024 [id number] [place] [id number] (GROUNDMAN) MDM HIGH MUST MEET 2 OUT OF 3 ELEMENTS: PROBLEMS, DATA OR RISK ELEMENT 1: PROBLEMS 1 OR MORE CHRONIC ILLNESS W/SEVERE EXACERBATION, PROGRESSION MAY REQUIRE HOSPITAL LEVEL CARE OR 1 ACUTE OR CHRONIC ILLNESS OR INJURY THAT POSES A THREAT TO LIFE OR BODILY FUNCTION ELEMENT 2: DATA: MUST MEET 2 OF 3 CATEGORIES CATEGORY 1 REVIEW OF PRIOR EXTERNAL NOTES REVIEW OF THE RESULTS ORDERING OF EACH TEST ASSESSMENT REQUIRING INDEPENDENT HISTORIAN(S) CATEGORY 2: INDEPENDENT INTERPRETATION OF TESTS BY ANOTHER PROVIDER/SPECIALI ST CATEGORY 3: DISCUSSION OF MGT OR TEST INTERPRETATION W/EXTERNAL PHYSICIAN/SPECIAL IST ELEMENT 3: RISK HIGH RISK OF MORBIDITY FROM ADDITIONAL DIAGNOSTIC TESTING OR TREATMENT PROVIDER MUST THOROUGHLY DOCUMENT EACH ELEMENT THAT IS COVERED The patient presented to their appointment today for multiple concerns requiring moderate to high-level decision making and took over 40-45 minutes for an adequate and appropriate history, exam, assessment and treatment plan. This appointment was done with an established patient. Not available 11/22/2024 16:24:32 09/13/2025 09/13/2025 Patient presente d to office [...] available Lab lipid panel, blood 2024 025 [facility], [address] [place] [address], [id number], 09/13/2025 10:35:24 CBC w/ auto diff 2024 025 [facility], [address] [place] [address], [address], 09/13/2025 10:35:23 CMP, serum or plasma 2024 025 [facility], [address] [place] [address], [address], 09/13/2025 10:35:23 testoster one, total, serum 2024 025 [facility], [address] [place] [address], [address], 09/13/2025 10:35:24 vitamin B12 + folate, serum or blood 2024 025 [facility], [address] [place] [address], [address], 09/13/2025 10:35:24 vitamin D, 25-hydrox y, total, serum 2024 025 [facility], [address] [place] [address], [address], 09/13/2025 10:35:23 CMP, serum or plasma 2023 024 [facility], [address] [place] [address], [address], 08/17/2024 10:29:58 CBC w/ auto diff 2023 [facility], [address] [place] [address], [address], 08/17/2024 10:29:58 PSA, serum or plasma 2023 [facility], [address] [place] [address], [address], 08/17/2024 10:29:58 lipid panel, blood 2023 [facility], [address] [place] [address], [address], 08/17/2024 10:29:58 vitamin D, 25-hydrox y, total, serum 2023 [facility], [address] [place] [address], [address], 08/23/2024 16:23:42 hemoglobi n A1c, QN, blood 2023 [facility], [address] [place] [address], [address], 08/17/2024 10:29:58 TSH, serum or plasma 2023 024 [facility], [address] [place] [address], [address], 08/17/2024 10:29:58 Referral gastroent erologist referral 2024 025 [email or web address] Cristi Juarez MD, [address] [place] [address], [id number], 09/13/2025 10:39:08 neurologi kamran surgeon referral - progressi ve pain with bilateral leg weakness and gait impairmen t 2024 025 [email or web address] 10 Ronald Cox MD, [facility] [address], [address], [place], [address], 04/18/2025 12:25:[address] referral 2023 024 [facility], [address], [address], [place], [address], 09/14/2024 09:14:05 Procedures None recorded. Surgeries None recorded. Imaging CT, abdomen + pelvis, w/ contrast 2024 025 [facility], [address] [place], [place], [address], 02/01/2025 10:32:33 XR, lumbosacr al spine, 2 or 3 view 2024 025 [facility] Not available 12/03/2024 11:21:02 Medication Orders terbinafi ne HCl 250 mg tablet 2024 025 [id number], [address], [place], [id number], 11/22/2024 16:29:43 valacyclo vir 1 gram tablet 2023 024 [facility] [employer] [facility] #[id number], [address], [place], [id number], 08/17/2024 10:11:03 prednison e 10 mg tablet 2023 024 [facility] [employer] #[id number], [address], [place], [id number], 08/17/2024 10:10:54 Patient TargetsNo targets recorded. Patient Instructions Encounter Date Encounter Id Patient Instructions Last Modified By Organization Details Last Modified Time 08/17/2024 [id number] supraventricular tachycardia: care instructions Not available 08/17/2024 10:23:55 hearing loss: ca re instructions Not available 08/17/2024 10:26:34 11/22/2024 [id number] supraventricular tachycardia: care instructions Not available 11/22/2024 16:29:38 back care and preventing injuries: care instructions Not available 11/22/2024 16:29:37 getting back to normal after low back pain: care instructions Not available 11/22/2024 16:29:38 learning about relief for back pain Not available 11/22/2024 16:29:38 gastroesophageal reflux disease (GERD): care instructions Not available 11/22/2024 16:29:37 09/13/2025 [id number] advance care planning: care instructions Not available 09/13/2025 10:29:41 Discussed and explained advance directives such as standard forms to the . Face to face discussion lasted for a duration of ___ minutes. Not available 07/08/2025 16:46:49 Reason for Referral Member Services Representative Referral for Maulik ateral hearing loss Referring Physician: Armando Kothari, Internal Medicine, Encounter Date: 08/17/2024 Neurological Surgeon Referra l for Compression of lumbar nerve root progressive pain with bilateral leg weakness and gait impairment Referring Physician: Armando Kothari, Internal Medicine, Encounter Date: 01/14/2025 Doorkeeper Referral for Screening for malignant neoplasm of colon screening colonoscopy Referring Physician: Armando Kothari, Internal Medicine, Encounter Date: 09/13/2025 Results Created Date Observation Date Name Description Value Unit Range Abnormal Flag Note LastModifiedBy Organization Detail LastModifiedTime 12/03/1912/03/2024 XR, lumbo sacra l spine , 2 or 3 view No observ ation record ed. [address], [address], 12/03/2024 18:35:05 01/02/20 25 12/31/2024 MRI, lumba r spine , w/o contr ast No observ ation record ed. [email or web address] [facility] [address], [address], 2025 12:14:18 02/12/20 25 02/08/2025 CT, abdom en + pelvi s, w/ contr ast No observ ation record ed. [address], [address], 09/13/2025 10:22:18 Result Notes None recorded. Problems Name Problem SNOMED Code Status Onset Date Resolution Date Notes Provider Name and Address Organization Details Recorded Time Gastroesop hageal reflux disease 757110507 Active 2017 Lucy mclean [facility] 4 10:09:51 Family history of diabetes mellitus 332812558 Active 2017 Lucyallie mclean [facility] 4 10:09:51 Family history of malignant neoplasm of thyroid 152840131 Active 2017 Lucy mclean [facility] 4 10:09:51 Low back pain 898877155 Active 2017 Lucyallie mclean [facility] 4 10:09:51 Obesity 105757946 Active 2017 Lucy mclean [facility] 4 10:09:51 Mixed sleep apnea 472889272 Active 2017 Lucyallie mclean [facility] 4 10:09:51 Supraventr icular tachycardi a 7054900 Active 2017 Lucyallie mclean [facility] 4 10:09:51 Onychomyco sis of toenails 756603208 Active 2018 Armando Kothari, DO [address] [facility], [place], [address], [facility] 9 11:05:53 Sleep apnea 90888426 Active 2021 Lucyallie mclean [facility] 4 10:09:51 COVID-19 904527809 Active 2021 Lucy mclean, [facility] 4 10:09:56 Herpes zoster 5321381 Active 2023 Lucy Judd null, [facility] 5 14:57:17 Bilateral hearing loss 27003004 Active 2023 Lucy Judd null, [facility] 5 14:57:14 Weakness of left lower limb Active 2024 Lucy Judd null, [facility] 5 14:57:14 Lumbar spine instabilit y 660323625 Active 2024 Lucyallie Judd null, [facility] 5 14:57:14 Compressio n of lumbar nerve root 396016103 Active 2024 Armando Kothari [address], [address], [facility] 5 16:38:19 Pain in pelvis 93310786 Active 2024 Armando Kothari, [address], [address], [facility] 5 16:41:54 Left inguinal hernia 784569325 Active 2024 Armando Kothari, [address], [address], [facility] 5 21:28:53 Fatigue 35296408 Active 2024 Armando Kothari [address], [address], [facility] 5 10:23:44 Problem Notes None recorded. Procedures Surgical History Date Name Laterality Status Provider Name and Address Organization Details Recorded Time 8 Colonoscopy completed Lisset Solomon [facility] 01/14/2020 13:59:44 Imaging Results None recorded. Procedure Notes None recorded. Medical Equipment None Reported. Allergies Allergen ID Allergen Name Allergen Category Reaction Reaction Severity Criticality Documentation Date Start Date Code Code System Note Provider Name and Address Organization Details Recorded Time 73449 diltiazem Not available headache Not available Not available 09/13/20252023 3443 RxNorm Not Available [facility] - External Data Service - prod 5 03:46:43 37881 omeprazol e magnesium medicatio n rash Not available low 09/13/20252023 66184 6 RxNorm Not Available [facility] External Data Service - prod 5 03:46:43 2071 Prilosec medicatio n Not available Not available Not available 05/18/2018 60876 5 RxNorm [facility] 8 08:17:15 3565 diltiazem medicatio n headache Not available Not available 08/13/2019 3443 RxNorm Armando Kothari, DO [address] [place], [address], [facility] 9 10:46:27 Medications Name Sig [...] height Body mass index (BMI) Body weight Heart rate Oxygen saturation Systolic And Diastolic Provider Name and Address Organization Details Last Updated DateTime 5 165.1 cm 37.4 kg/m2 834602. 28 g 77 /min 98 % 122/72 mm[Hg] Duane Malone [facility] 5 15:54:12 Date Recorded Body height Body mass index (BMI) Body weight Heart rate Oxygen saturation Systolic And Diastolic Provider Name and Address Organization Details Last Updated DateTime 5 165.1 cm 37.4 kg/m2 946584. 28 g 83 /min 96 % 116/76 mm[Hg] Armando Kothari, DO [address] [place], [address], [facility] 5 16:26:42 Date Recorded Body height Body mass index (BMI) Body weight Heart rate Oxygen saturation Systolic And Diastolic Provider Name and Address Organization Details Last Updated DateTime 4 165.1 cm 36.6 kg/m2 79952.3 2 g 76 /min 97 % 126/76 mm[Hg] Duane Malone [facility] 4 10:11:13 Date Recorded Body height Body mass index (BMI) Body weight Oxygen saturation Heart rate Systolic And Diastolic Provider Name and Address Organization Details Last Updated DateTime 5 165.1 cm 37.4 kg/m2 512091. 28 g 95 % 71 /min 116/78 mm[Hg] TERE ALEJANDRA [facility] 5 10:01:07 Social History Question Answer Notes LastModified by Organizat ion Details LastModified Time Tobacco Smoking Status Never Smoker Not Available [facility] 08/15/2020 03:36:23 What Is Your Level Of Caffeine Consumption? None [id number] Information not available 08/15/2020 What Was The Date Of Your Most Recent Tobacco Screening? 09/13/2025 Information not available 09/13/2025 Sex: Unknown Functional Status Question Answer Note LastModified by Organizat ion Details LastModified Time Do you or have you ever used any other forms of tobacco or nicotine? No Information not available 08/09/2022 What is your level of alcohol consumption? None [id number] Information not available 08/15/2020 What is your exercise level? Moderate WALKING [id number] Information not available 08/15/2020 Mental Status None recorded. Family History Nothing Reported. Medical History No medical history recorded. Immunizations Vaccine Type Date Status Note Provider Nam e and Address Organization Details Recorded Time Tdap 08/19/2022 completed Armando Kothari DO [address] [place] [address], [address], [facility] 08/17/2024 10:28:37 COVID-19, mRNA, LNP-S, PF, 100 mcg/0.5mL dose or 50 mcg/0.25mL dose 10/23/2020 completed Gilles Valadez [address] [place] [address], [address], [facility] 12/13/2020 16:38:49 COVID-19, mRNA, LNP-S, PF, 100 mcg/0.5mL dose or 50 mcg/0.25mL dose 11/23/2020 completed Gilles Valadez [address] [place] [address], [address], [facility] 12/13/2020 16:39:00 Past Encounters Encounter ID Performer Location Encounter Start Date Encounter Closed Date Diagnosis/Indication Diagnosis SNOMED-CT Code Diagnosis ICD10 Code Diagnosis IMO Codes Diagnosis Note [id number] Armando Kothari DO [facility] [address] [place] [address],[place] [address] 05/18/2018 10:15:48 05/18/2018 12:09:10 Gastroesophageal reflux disease 987395192 K21.9 Paroxysmal supraventricular tachycardia 25862783 I47.1 asymptomat ic and will alert if any changes Obesity 727498676 E66.9 long discussion re cont to lose wgt and to get his walking a daily routine Painless r ectal bleeding 061998562 K62.5 [id number] Armando Kothari DO [facility] [address] [place] [address] 11/24/2018 09:00:18 11/24/2018 09:49:43 Adult health examination 435986940 Z00.00 Active or passive immunization 411840537 Z23 [id number] Armando Kothari [facility] [address] [place] [address] 02/05/2019 15:39:23 02/05/2019 16:15:26 Inflammation of rotator cuff tendon 704975482 M65.819 Low back pain 482739961 M54.5 still episodic tx conserv Paroxysmal supraventricular tachycardia 92015323 I47.1 asymptomat ic and will alert if any changes [id number] Armando Kothari [facility] [address] [place] [address] 07/09/2019 10:49:13 07/09/2019 12:33:04 Gastroesophageal reflux disease 157961850 K21.9 stable and without major issue Obesity 519440305 E66.9 long discussion re cont to lose wgt and to get his walking a daily routine Paroxysmal supraventricular tachycardia 76900739 I47.1 has had some breakthrou gh will order event recorder and also, given suppressed mood will have him stop the metoprolol and strt low dose diltiazem 120mg Onychomyco sis of toenails 169332243 B35.1 will restart the the lamisil 250 Mixed sleep apnea 645512 001 G47.39 continues to use his oral device had been working well but now is several years old and will need a new one should call for appt and obtain a new device [id number] Armando Kothari [facility] [address] [place] [address] 08/13/2019 09:58:56 08/13/2019 11:01:27 Onychomycosis of toenails 750580192 B35.1 the the lamisil 250 seems to be helping Paroxysmal supraventricular tachycardia 54240107 I47.1 has had some breakthrou gh with event recorder but these were only single ectopics which correlated with his symptom of palpitatio n and his mood is still very good so no need to stop the metoprolol and did not tolerate the low dose diltiazem 120mg [id number] Armando Kothari DO [facility] [address] [facility], [place] [address] 12/10/2019 09:57:32 12/10/2019 11:25:56 Adult health examination 996024300 Z00.00 discussed in detail needs to get lab Active or passive immunization 951276034 Z23 Paroxysmal supraventricular tachycardia 88761538 I47.1 has had some breakthrou gh with current dose of metoprolol took extra on his own with good results and drop of bp and stop [place] [id number] Armando Kothari DO [facility] [address] [facility], [facility] [place] [place] [address] 01/14/2020 10:48:54 01/14/2020 11:44:23 Supraventricular tachycardia 4143581 I47.1 denies any episodes did great during deployment will get ecg now Gastroesop hageal reflux disease 572963468 K21.9 stable and without major issue Low back pain 482380425 M54.5 still episodic tx conserv [id number] Armando Kothari DO [facility] [address] [facility], [place] [address] 12/13/2020 16:28:38 12/15/2020 09:15:56 Active or passive immunization 860444475 Z23 Adult heal th examination 004030687 Z00.01 discussed in detail needs to get lab we will also ask him to look into hypnosis Supraventr icular tachycardia 0434237 I47.1 did not tolerate the kamran channel blockers at all has stopped the beta block on his own too so now he is not on anything and his pulse has been followed and is will get ecg now [id number] Armando Kothari DO [facility] [address] [facility], [employer] [facility] [place] [address] 05/09/2021 08:57:38 05/09/2021 09:33:20 Headache 18612982 R51.9 unknown etiology and i am unsure how this connects to the neck pain Insomnia 239215694 G47.0 0 [id number] Armando Kothari [facility] [address] [facility] [address],[place] [address] 08/09/2022 10:42:30 08/09/2022 14:45:18 Active or passive immunization 531055957 Z23 patient advised he is due for tdap Adult heal th examination 342293126 Z00.00 discussed in detail needs to get lab we will also ask him to look into hypnosis Supraventr icular tachycardia 7735419 I47.1 max lopez for the most part does occ get it druing the day kathia when stressed [id number] Armando Kothari [facility] [address] [facility] [address],[place] [address] 08/13/2023 11:08:18 08/13/2023 12:07:05 Supraventricular tachycardia 1045083 I47.10 will l follow and doing ok right nowhe will add magnesium Family his tory of diabetes mellitus 636978152 Z83.3 [id number] Armando Kothari [facility] [address] [facility] [address] [place] [address] 09/17/2023 10:42:35 09/17/2023 11:32:06 Gastroesophageal reflux disease 317938944 K21.9 stable and without major issue Sleep apnea 78621385 G47 .30 discussed the dental device Supraventr icular tachycardia 6999731 I47.10 will l follow and doing ok right nowhe will add magnesium [id number] Armando Kothari [facility] [address] [facility] [address], [place] [address] 06/18/2024 14:16:42 06/18/2024 14:27:04 Herpes zoster 3205545 B02.9 start course as directed [id number] Armando Kothari [facility] [address] [facility] [address] [place] [address] 08/17/2024 10:00:07 08/17/2024 10:37:17 Active or passive immunization 704849367 Z23 patient advised he is due for tdap Adult heal th examination 995783010 Z00.01 discussed in detail needs to get lab we will also ask him to look into hypnosis Depression screening 171 813594 Z13.31 Supraventr icular tachycardia 8120939 I47.1 Bilateral hearing loss 40894822 H91.93 [id number] Armando Kothari [facility] [address] [facility], [place] [address] 11/22/2024 15:44:21 11/22/2024 16:34:52 Family history of diabetes mellitus 879889003 Z83.3 a1c is 5.2 doing well overall Gastroesop hageal reflux disease 930389524 K21.9 stable and without major issue Low back pain 871454720 M54.50 will need work up given the worsening Onychomyco sis of toenails 322544534 B35.1 the the lamisil 250 seems to be helping Supraventr icular tachycardia 6005495 I47.10 will l follow and doing ok right now and should be starting the propranolo l per dr antonio will add magnesium Weakness o f left lower limb 1823836810 09008 M62.81 from sciatica and getting worse will need mr i as soon as xr [id number] Armando Kothari, [facility] [address] [facility],[place] [address] 01/14/2025 16:22:08 01/14/2025 17:01:10 Depression screening 057924951 Z13.31 neg Compressio n of lumbar nerve root 878839379 G54.4 needs neuro surg eval Pain in pelvis 38836495 R10.2 [id number] Armando Kothari [facility] [address] [facility], [place] [address] 09/13/2025 09:55:14 09/13/2025 10:32:52 Screening for cardiovascular system disease 290117078 Z13.6 utd Screening for malignant neoplasm of colon 424555613 Z12.11 Depression screening 171 435969 Z13.31 neg Preventive procedure 169 038795 Z00.00 22297004 discussed in detail needs to get labalso will have him get a eval and talk to his insur for glp-1 use Fatigue 58002626 R53.82 [id number] Health Concerns Section Related Observation LastModified by Organization Detai ls LastModified Time None Recorded Concern Status LastModified by Organization Details LastModified Time None Recorded Advance Directives Directive None Recorded Payers Insurance Date Sequence Insurance Name Policy Number Policy Mendoza Covered Member ID Mendoza Member ID Guarantor Name 09/12/2025 1 [facility] [id number] Archie Gonzales [id number] Archie Gonzales Notes Date Note Type Note Provider Name and Address Organization Details Recorded Time 4 text/htm l ROS as noted in the HPI c/o rash, ?shingles The patient is participating in this appointment via telemedicine communication with a phone call/video calling service (Tingzy)The patient consents to use of these platforms in place of an in-person appointment due to either sick symptoms the patient is presenting with or current office closure due to COVID exposure in order to keep our office staff and patients safe the patient has a rash wrapping under the right breast toward the back along T5 to T6the patient notes it to be be a vesicular rash, blister looking, nowhere else on the body most likely shingles, knows he had chicken pox when he was 6 years old start on treatmentwill fu next week with an update on his progress YAMEL LAZO [address] [place] [address], [address], [facility] 06/18/2024 14:26:22 4 text/htm l Annual WellnessReported by PatientSocial/Behavioral HistoryFor diet and nutrition, patient reportshealthy diet. For fracture risk, patient reportsno history of fractures,no recent explained fracture,no sudden unexplained fractures, andno previous musculoskeletal injuries. For physical activity, patient reportsexercises on a regular basis,recent increase in physical activity, andgood physical condition. For additional lifestyle factors, patient reportsno tobacco use,no alcohol intake, andstopped drinking alcohol.Mental Status:For depression risk, patient reportsnever feels sad, empty, or tearful,no loss of interest in activities,no significant changes in weight,no sleep disturbances or insomnia,no agitation,no loss of energy,no feelings of worthlessness or guilt,no thoughts of suicide,no history of depression, andno history of mood disorders.Functional AbilityFor hearing, patient reportsno loss of hearing. For vision, patient reportsno vision problems.ROS as noted in the HPI Armando Kothari DO [address] [place], [address], [facility] 08/17/2024 10:32:03 5 text/htm l ROS as noted in the HPI here for rechkreviewed lab in detailbeltranoks fantastic all of itrelates having pain in his low backnow having pain down left leg with left leg weakness is getting progressivesometimes hard to climb stairs due to weakness and painalso when pulling up a hose for a well pump and strained his left inner thigh and groin Armando Kothari DO [address] [place], [id number], [facility] 11/22/2024 16:31:04 5 text/htm l ROS as noted in the HPI discussed in detail his mri report showing anterolisthesis of L-5 also still having an issue with his groin after pulling up the well [place] all of itrelates having pain in his low backnow having pain down left leg with left leg weakness is getting progressivesometimes hard to climb stairs due to weakness and painalso when pulling up a hose for a well pump and strained his left inner thigh and groin Armando Kothari DO [address] [place], [id number], [facility] 01/14/2025 16:44:26 5 text/htm l Medicare Annual Wellness VisitReported by PatientSocial/Behavioral HistoryFor diet and nutrition, patient reportshealthy diet. [...] home.ROS as noted in the HPI Armando Kothari, DO [address] [facility], [place], [id number], [facility] 09/13/2025 10:51:00
[2025-09-13 13:32] LABS: MANUAL DIFF FLAG NO
[2025-09-13 13:41] LABS: Hematocrit 48.3 % (42.0-52.0); Hemoglobin 16.0 g/dl (14.0-18.0); Imm Gran Abs Auto 0.04 X10*3/uL (0.00-0.03); Imm Gran Pct Auto 0.7 % (0.0-0.4); Lymphocytes Absolute Auto 1.5 X10*3/uL (1.2-4.9); Mean Corpuscular HGB Conc 33.1 g/dl (31.0-36.0); Mean Corpuscular Hemoglobin 30.7 pg (27.0-33.0); Mean Corpuscular Volume 92.7 fL (80.0-98.0); NRBC Abs Auto 0.000 X10*3/uL (0.0-0.012); NRBC Pct Auto 0.0 /100WBC (0.0-0.2); Platelet Count 270 X10*3/uL (160-400); Red Blood Count 5.21 X10*6/uL (4.60-5.80); White Blood Count 6.1 X10*3/uL (4.8-10.8)
[2025-09-13 14:04] LABS: Alanine Aminotransferase 18 U/L (0-40); Albumin Level 4.5 g/dL (3.5-5.0); Alkaline Phosphatase 76 U/L (39-117); Anion Gap 13 (12-20); Aspartate Amino Transferase 25 U/L (5-37); Blood Urea Nitrogen 21 mg/dL (9-16); Calcium 9.3 mg/dL (8.4-10.2); Carbon Dioxide 27 mmol/L (22-29); Chloride 105 mmol/L (96-108); Cholesterol 178 mg/dL (<200); Estimated Glomerular Filt Rate > 60; HDL Cholesterol 56 mg/dL (>40); Potassium 4.4 mmol/L (3.3-5.1); Sodium 141 mmol/L (135-145); Total Protein 7.3 g/dL (6.5-8.0); Triglycerides 59 mg/dL (<150)
[2025-09-13 14:23] LABS: Folate 10.2 ng/mL (> or = 4.0); Vitamin B12 368 pg/mL (200-900)
== END 2025-09-13 10:40 | disposition home or self-care (01) ==
LOC: HO.MANLDS 10:39
PROVIDERS: Visit Provider Internal Medicine
DX: Z00.00 Encounter for general adult medical examination without abnormal findings (principal); Z13.6 Encounter for screening for cardiovascular disorders; R53.82 Chronic fatigue, unspecified; Z13.21 Encounter for screening for nutritional disorder
CPT/HCPCS: 36415; 80053; 80061; 82306; 82607; 82746; 84403; 85025